=== PATIENT | female | born 1965 | race Caucasian/White ===

== ENCOUNTER 2024-06-13 09:55 | Inpatient (IN) ==
--- NOTE | 2024-06-06 11:21 | Anesthesiology Consultation ---
Date of Service June 06, 2024 Assessment & Plan Chart Review Chart Review: Acceptable Risk for Surgery and Patient NOT seen in Pre Admission Testing Consults Requested none History Surgery Operation Date: 06/13/24 12:35 Proposed Procedures p L2-L4 Decompression and Fusion Spinal Cord Monitoring - Judah Montoya DO Height/Weight Height: 5 ft 2 in Weight: 63.503 kg Allergies Allergy/AdvReac Type Severity Reaction Status Date / Time doxycycline Allergy Intermediate hives/rash Verified 06/06/24 08:32 Penicillins Allergy Unknown Unknown Verified 06/06/24 08:32 Medications Home Medications Medication Instructions Recorded Confirmed Last Taken alprazolam 0.5 mg tablet (Xanax) 0.5 mg PO DAILY PRN Anxiety 06/06/24 06/06/24 Unknown cholecalciferol (vitamin D3) 125 5,000 unit PO QAM 06/06/24 06/06/24 Unknown mcg (5,000 unit) tablet (Vitamin D3) omeprazole 40 mg capsule,delayed 40 mg PO QAM 06/06/24 06/06/24 Unknown release sertraline 100 mg tablet (Zoloft) 150 mg PO QAM 06/06/24 06/06/24 Unknown sumatriptan succinate 100 mg 100 mg PO UD PRN Migraine Headache 06/06/24 06/06/24 Unknown tablet (Imitrex) Past Medical History Medical History (Updated 06/06/24 @ 08:41 by Mylene Cabrera RN) PMR (polymyalgia rheumatica) Scoliosis Chronic back pain Fatty liver History of gastric ulcer GERD (gastroesophageal reflux disease) Monse thyroiditis per pt no meds currently Anxiety Depression 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 prolapse 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 Past Family History Family History (Updated 06/06/24 @ 08:42 by Mylene Cabrera RN) Other No family history of adverse response to anesthesia Past Surgical History Surgical History (Updated 06/06/24 @ 08:42 by Mylene Cabrera RN) History of lumpectomy of right breast benign tumor removal History of endometrial ablation History of thumb surgery x2--1 on each thumb History of repair of left rotator cuff History of repair of right rotator cuff History of surgical fusion joint SI joint left side History of liver biopsy fatty liver History of colonoscopy History of esophagogastroduodenoscopy (EGD) History of thyroid surgery per pt due to hasimoto Social History Smoking Status: Former smoker Do You Dip or Chew Tobacco: No Smoking End Date: 2013 Hx Alcohol Use: No Hx Substance Use: No substance use type: does not use
[2024-06-13] MEDS ORDERED: GLYCOPYRROLATE 0.2 MG/ML VIAL ONE (10:12)
[2024-06-13] MEDS ORDERED: ONDANSETRON INJ 2 MG/ML 2 ML VIAL ONE (10:12)
[2024-06-13] MEDS ORDERED: fentaNYL citrate PF 100 MCG/2 ML VIAL ONE (10:12)
[2024-06-13] MEDS ORDERED: PROPOFOL IV EMULSION 10 MG/ML 20 ML VIAL IV ONE (10:12)
[2024-06-13] MEDS ORDERED: ROCURONIUM BROMIDE 10 MG/ML 5 ML VIAL IV ONE (10:12)
[2024-06-13] MEDS ORDERED: MIDAZOLAM HCL 1 MG/ML 2ML VIAL ONE (10:12)
[2024-06-13] MEDS ORDERED: DEXAMETHASONE SOD INJ 4 MG/ML VIAL ONE (10:12)
[2024-06-13] MEDS ORDERED: LIDOCAINE 2% 2 ML VIAL/AMP(20MG/ML) INFIL ONE (10:12)
[2024-06-13] MEDS ORDERED: SUGAMMADEX SODIUM 200 MG/2 ML VIAL IV ONE (10:15)
[2024-06-13] MEDS ORDERED: ATROPINE SULFATE 0.1 MG/ML 10ML SYR IV PRN (10:46)
[2024-06-13] MEDS ORDERED: HYDROmorphone INJ 1 MG/ML SYRINGE IV PRN ×2 (10:46→17:29)
[2024-06-13] MEDS ORDERED: ePHEDrine sulfate 50 MG/ML AMP IV PRN (10:46)
[2024-06-13] MEDS ORDERED: ONDANSETRON INJ 2 MG/ML 2 ML VIAL IV PRN ×2 (10:46→17:29)
--- NOTE | 2024-06-13 10:49 | Anesthesiology Consultation ---
Date of Service June 13, 2024 Assessment & Plan Chart Review Chart Review: Acceptable Risk for Surgery Consults Requested none ASA ASA2 Proposed Anesthesia Anesthesia Type: General History Surgery Operation Date: 06/13/24 12:35 Proposed Procedures p L2-L4 Decompression and Fusion, Spinal Cord Monitoring - Judah Montoya DO Height/Weight Height: 5 ft 2 in Weight: 63.2 kg Allergies Allergy/AdvReac Type Severity Reaction Status Date / Time doxycycline Allergy Intermediate hives/rash Verified 06/13/24 10:40 Penicillins Allergy Unknown Unknown Verified 06/13/24 10:40 Medications Home Medications Medication Instructions Recorded Confirmed Last Taken alprazolam 0.5 mg tablet (Xanax) 0.5 mg PO DAILY PRN Anxiety 06/06/24 06/13/24 Unknown cholecalciferol (vitamin D3) 125 5,000 unit PO QAM 06/06/24 06/13/24 06/11/24 07:00 mcg (5,000 unit) tablet (Vitamin D3) omeprazole 40 mg capsule,delayed 40 mg PO QAM 06/06/24 06/13/24 06/11/24 07:00 release sertraline 100 mg tablet (Zoloft) 150 mg PO QAM 06/06/24 06/13/24 06/12/24 07:00 sumatriptan succinate 100 mg 100 mg PO UD PRN Migraine Headache 06/06/24 06/13/24 Unknown tablet (Imitrex) NPO Last Intake of Solids Comment: NPO past MN Past Medical History Medical History PMR (polymyalgia rheumatica) Scoliosis Chronic back pain Fatty liver History of gastric ulcer GERD (gastroesophageal reflux disease) Monse thyroiditis per pt no meds currently Anxiety Depression 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 prolapse 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 Exercise / Class Metabolic Activity II 4-5 Yardwork/Stairs/Walk up hill Past Family History Family History Other No family history of adverse response to anesthesia Past Surgical History Surgical History History of lumpectomy of right breast benign tumor removal History of endometrial ablation History of thumb surgery x2--1 on each thumb History of repair of left rotator cuff History of repair of right rotator cuff History of surgical fusion joint SI joint left side History of liver biopsy fatty liver History of colonoscopy History of esophagogastroduodenoscopy (EGD) History of thyroid surgery per pt due to hasimoto Past Anesthesia History No Hx of Anesthesia Complications History of PONV No Hx of PONV Social History Smoking Status: Never smoker Do You Dip or Chew Tobacco: No Smoking End Date: 2013 Hx Alcohol Use: No Hx Substance Use: No substance use type: does not use Review of Systems ROS Unobtainable: All systems reviewed & are unremarkable except as noted in Subjective Respiratory: no problem reported Cardiovascular: no problem reported Pain in Left leg 2nd to back issues Physical Exam Constitutional no acute distress ENMT Mouth: no dentition abnormality Thyromental Distance: > or= 3.5 Finger Breadths Mallampati Class: I Neck normal visual inspection Respiratory normal respiratory effort, lungs clear to auscultation normal respiratory effort Auscultation: lungs clear to auscultation bilaterally Cardiovascular RRR, no murmur, no edema Rate/Rhythm: regular rate and regular rhythm Testing Electrocardiogram Normal sinus rhythm Normal ECG When compared with ECG of 26-Jun-2022 11:00, No significant change was found
[2024-06-13] MEDS: GABAPENTIN 600 MG DOSE PO SCH (11:06)
[2024-06-13] MEDS: LR 60ML/HR IV SCH (11:06)
[2024-06-13] MEDS: ACETAMINOPHEN 500 MG TAB PO SCH (11:06)
[2024-06-13] MEDS: CeleBREX 200 MG CAP PO SCH (11:07)
[2024-06-13] MEDS: LACTATED RINGER'S 1,000 ML IV SCH (11:49)
[2024-06-13] MEDS: VANCOMYCIN HCL 1,000 MG/270 ML BAG IV SCH (11:51)
--- NOTE | 2024-06-13 13:13 | History & Physical Bridge Note ---
Date of Service June 13, 2024 History & Physical Bridge Note I have examined the patient, reviewed the History & Physical and in the interval since the performance of the History & Physical I have noted the following changes of clinical significance: no changes noted
--- NOTE | 2024-06-13 13:14 | History & Physical Report ---
Date of Service June 13, 2024 Assessment & Plan (1) Lumbosacral spondylosis with radiculopathy: Plan: L2-L4 decompression and fusion History of Present Illness Chief Complaint: Back and leg pain Primary Care Provider: Michelle Weathers PA-C This is a 59-year-old female who presents with chronic system back and leg pain after failing course of nonoperative care is here for surgical invention. Allergies Allergy/AdvReac Type Severity Reaction Status Date / Time doxycycline Allergy Intermediate hives/rash Verified 06/13/24 10:40 Penicillins Allergy Unknown Unknown Verified 06/13/24 10:40 Home Medications Medication Instructions Recorded Confirmed Type alprazolam 0.5 mg tablet (Xanax) 0.5 mg PO DAILY PRN Anxiety 06/06/24 06/13/24 History cholecalciferol (vitamin D3) 125 5,000 unit PO QAM 06/06/24 06/13/24 History mcg (5,000 unit) tablet (Vitamin D3) omeprazole 40 mg capsule,delayed 40 mg PO QAM 06/06/24 06/13/24 History release sertraline 100 mg tablet (Zoloft) 150 mg PO QAM 06/06/24 06/13/24 History sumatriptan succinate 100 mg 100 mg PO UD PRN Migraine Headache 06/06/24 06/13/24 History tablet (Imitrex) Past Med/Surg History Problem List (Updated 06/13/24 @ 13:14 by Judah Montoya DO) Lumbosacral spondylosis with radiculopathy Medical History PMR (polymyalgia rheumatica) Scoliosis Chronic back pain Fatty liver History of gastric ulcer GERD (gastroesophageal reflux disease) Monse thyroiditis per pt no meds currently Anxiety Depression 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 prolapse 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 Surgical History History of lumpectomy of right breast benign tumor removal History of endometrial ablation History of thumb surgery x2--1 on each thumb History of repair of left rotator cuff History of repair of right rotator cuff History of surgical fusion joint SI joint left side History of liver biopsy fatty liver History of colonoscopy History of esophagogastroduodenoscopy (EGD) History of thyroid surgery per pt due to hasimoto Family History Other No family history of adverse response to anesthesia Social History Smoking Status: Never smoker Smoking End Date: 2013; Second Hand Exposure: No; Do You Dip or Chew Tobacco: No; Tobacco Cessation Education Requested by Patient: No Hx Alcohol Use: No Hx Substance Use: No Preferred Language: Afghan Communication Ability: Effective Baggage Agent Supervisor Required: No Beliefs That Will Affect Care: None Current Living Situation: Alone Other Information That Helps Us Care for You: No Feels Safe at Home: Yes Safety Concerns: Feels Safe At This Time Assistive Devices: Glasses Physical Exam Physical Exam: Patient is alert and oriented heart regular rhythm Lungs clear Results & Data Results & Data Vital Signs (Past 12 Hours) Vital Signs Temp Pulse Resp BP Pulse Ox O2 Del Method 06/13/24 10:47 37.2 C 77 20 129/72 95 Room Air
[2024-06-13] MEDS: BUPIVACAINE/EPINEPHRINE 0.25% 1:200,000 30 ML VIAL ONE (14:32)
--- NOTE | 2024-06-13 15:44 | Operative Report ---
Post Operative Report Pre & Post Diagnosis Operation Date: 06/13/24 12:35 Pre-Op Diagnosis: Lumbosacral Spondylosis with Radiculopathy Post-Op Diagnosis: Lumbosacral Spondylosis with Radiculopathy I identified the patient and participated in the time-out.: Yes Procedure Operation Date: 06/13/24 12:35 Actual Procedures #1 lumbar decompression with bilateral medial facetectomies and foraminotomies L2-L3 L3-L4. #2 posterior spinal fusion L2-L3 L3 L4-5 #3 placement posterior instrumentation L2-L4. #4 interbody fusion L2-L3 L3-L4. #5 placement Spira 9 x 22 mm at L2-L3 and 10 x 22 mm at L3-L4. #6 placement locally harvested morselized autograft posterior gutters. #7 placement of infuse collagen sponge combined with Koros in the posterior lateral gutters and os design in the interbody space. #8 application of versa wrap of the exposed dura. Surgeon Judah Montoya, Environmental Health And Safety Manager Brendon Roldan Estimated Blood Loss 150 Findings Consistent with Post-Op Diagnosis Specimens None Indications This is a 59-year-old female presents publish diagnosis of failed course of nonoperative care is here for surgical invention. Description of Procedure Patient was met with identified informed consent obtained. Patient was then taken to the operative suite underwent intubation placed in a prone position the Dave table atop the Manuelito frame. All bony prominences well-padded eyes inspected to ensure no external pressure placed upon them. This point the lumbar spine was prepped and draped no sterile fashion. Sharp dissection with the assistance of Bovie cautery performed down to and exposing the lamina transverse processes of L2-L3-L4 bilaterally. From caudal to cephalad fashion complete laminectomy of L3 and L2 was performed including bilateral medial facetectomies and foraminotomies addressing severe spinal stenosis. Pedicle screws then placed in L2-L3-L4 bilaterally with assistance of fluoroscopy. By way of transforaminal approach on the left complete discectomy of L3-L4 was performed endplates corrected to subcortical bleeding bone and a 10 x 26 mm Spira cage filled with os design bone graft tapped in position. Then proceeded to L2-L3. Again by way of transforaminal approach on the left complete discectomy performed endplates corrected to subcortical and bone and a 9 x 22 mm Spira cage filled with os design bone graft tapped in position. The rods were then placed locked in final position bilaterally. The transverse processes of L2-L3-L4 burred to subcortical bleeding bone. Infuse collagen sponge combined with Koros and local autograft placed in the posterior gutters. 15 round BARTOLO drain inserted. Versa wrap placed over exposed dura. The incision was then closed with 1 Vicryl the fascia 2-0 Vicryl subcutaneously and 4 Monocryl for final skin closure. Steri-Strips sterile dressing placed. Patient waken taken to PACU stable condition. Please note spinal cord monitoring was utilized at the procedure no changes noted. Brendon Jackson was present throughout the entire procedure involved the patient positioning complex portion of the surgery and final skin closure. I attest to the content of the Intraoperative Record and any orders documented therein. Any exceptions are noted below.
--- NOTE | 2024-06-13 15:48 | Fluoroscopy Report ---
FL lumbar spine 2-3V CLINICAL HISTORY: L2-L4 DECOMPRESSION AND FUSION COMPARISON STUDY: MRI lumbar spine 02/26/2024 FLUOROSCOPY TIME: 26.5 seconds FLUOROSCOPY IMAGES: 2 EXPOSURE DOSE: 16.45 mGy FINDINGS: Posterior interbody marjorie and screw fusion with discectomy noted at what is labeled the L2-L4 levels. There is an enteric tube present. No unexpected opaque foreign bodies. Images were submitted following completion of the surgery. IMPRESSION: Fluoroscopic assistance as above. ACT 112: Negative or not required by law. Electronically signed by: Tenzin Gomez M.D. 06/13/2024 3:47 PM
[2024-06-13] MEDS: fentaNYL citrate PF 100 MCG/2 ML VIAL IV PRN (16:09)
--- OUTSIDE RECORDS SUMMARY | 2024-06-13 17:25 | External Medical Summary | Summary of Care ---
Author Name Unknown Organization [facility] Address [address] [place] [address] Phone [phone] Care Team Providers Care Oil Well Logging Engineer Name Role Phone Michelle Weathers PA-C Primary Care Provider Encounter Details Date Type Department Care Team ([facility] Contact Info) Description 06/09/2024 Orders Only Family [address] [phone] Michelle Weathers PA-C [address] [place] [address] Allergies Active Allergy Reactions Criticality Noted Date Comments Doxycycline 07/22/2003 Other Reaction(s): Unknown Penicillins 03/08/2001 Venlafaxine Hydrochloride 03/10/2021 documented as of this encounter (statuses as of 06/09/2024) Medications clobetasol (TEMOVATE) 0.05 % gelIndications:L ichen sclerosus apply to vaginal area every day with flare ups. not longer than 2 weeks. 1 Tube 3 9 Active SUMAtriptan Succinate 100 MG Oral TabletIndication s:Intractable migraine with aura without status migrainosus take one tablet by mouth at headache onset, may repeat one tablet in 2 hours if needed 9 Tab 5 1 Active Fluticasone Propionate 50 MCG/ACT Nasal Suspension (Flonase)Indicat ions:Acute sinusitis, recurrence not specified, unspecified location Administer 2 Sprays into each nostril in the morning. 1 Each 5 3 Active Omeprazole 40 MG Oral Capsule Delayed Release (PriLOSEC)Indica tions:Epigastric pain Take 1 Capsule by mouth in the morning. 1 hour before the first meal of the day. 90 Capsule 3 3 Active Sertraline HCl 50 MG Oral Tablet (Zoloft)Indicati ons:Mood disorder (HCC),Severe episode of recurrent major depressive disorder, without psychotic features (HCC),ESTEVAN (generalized anxiety disorder) TAKE 1 TABLET BY MOUTH IN THE MORNING ALONG WITH 100MG TABLET 90 Tablet 2 4 Active Sertraline HCl 100 MG Oral Tablet (Zoloft) TAKE 1 TABLET BY MOUTH DAILY 90 Tablet 1 4 Active predniSONE 5 MG Oral Tablet (Deltasone) Take 1 Tablet by mouth in the morning. 14 Tablet 4 Active documented as of this encounter (statuses as of 06/09/2024) Active Problems Problem Noted Date Diagnosed Date MVP (mitral valve prolapse) 06/06/2024 Anxiety 04/25/2023 Lichen sclerosus of female genitalia 03/07/2023 History of Monse thyroiditis 03/07/2023 Gastroesophageal reflux disease 03/07/2023 Severe episode of recurrent major depressive disorder, without psychotic features 03/16/2021 Sleep disorder 03/16/2021 Chronic midline low back pain 02/16/2021 Chronic neck pain 02/16/2021 Mood disorder 02/16/2021 Acquired spondylolisthesis 12/19/2019 Cervical radiculopathy, chronic 12/19/2019 Palpitations 12/08/2019 Preoperative cardiovascular examination 12/08/19 20 History of tobacco abuse 08/04/2019 ESTEVAN (generalized anxiety disorder) 06/06/2018 FUNCTIONAL VAGINISMUS 08/23/2006 Rosacea 07/19/2005 Vertigo 07/04/2004 CLASSICAL MIGRAINE WITH INTRACTABLE MIGRAINE, SO STATED 07/04/2002 documented as of this encounter (statuses as of 06/09/2024) Resolved Problems Problem Noted Date Diagnosed Date Resolved Date Muscle spasm 02/16/2021 03/07/2023 Gastroesophageal reflux dise ase without esophagitis 02/16/2021 03/07/2023 Recurrent major depressive disorder 04/29/2019 02/16/2021 MEDICATION USE AGREEMENT 06/06/2018 Lichen sclerosus et atrophicus 08/11/2015 03/07/2023 Pure hypercholesterolemia 07/03/2013 ADVANCE DIRECTIVE INFORMATION 12/14/2006 02/16/2021 Overview (12/14/2006): No, Advance Directive brochure given to patient. CERVICAL DISC DISPLACMNT 09/20/2005 Seborrheic dermatitis 07/19/20052019 Overview (03/26/2017): ICD-10 update of inactive term Vascular Spider Left facial chin 07/19/2005 02/16/2021 History of hypothyroidism Acute peptic ulcer, unspecif ied site, without mention of hemorrhage, perforation, or obstruction 08/04/2019 documented as of this encounter (statuses as of 06/09/2024) Immunizations Name Administration Dates Next Due PPD 09/09/2007 Pneumococcal Polysaccharide PPV23 (Pneumovax) 12/08/2013(Deferred: Patient Refused) TDAP (age 10 and older)(Boostrix) 10/08/2014 TDAP, Age 7 and older, IM (Adacel) 12/08/2013(De ferred: Patient Refused) documented as of this encounter Social History Tobacco Use Types Packs/Day Years Used Date Smoking Tobacco: Former Cigarettes 1 20 0 07/04/1993 - 07/04/2013 Smokeless Tobacco: Never Alcohol Use Standard Drinks/Week Comments Not Currently 0 (1 standard drink = 0.6 oz pur e alcohol) occ PHQ-2 Answer Date Recorded PHQ Adult Total Score 16 03/07/2023 Hunger Vital Sign Answer Date Recorded Within the past 12 months, y ou worried that your food would run out before you got the money to buy more. Never true 06/06/20 24 Within the past 12 months, t he food you bought just didn't last and you didn't have money to get more. Never true 06/06/2024 Childcare Answer Date Recorded Do you feel overwhelmed with taking care of a child, family member or friend? No 06/06/2024 Does your family need help f inding childcare? (Household - for ages 0-17 years) Not on file 06/06/2024 Clothing Answer Date Recorded Have you been unable to get clothing when it was really needed? No 06/06/2024 Is your family able to get c lothes or diapers when needed? (Household - for ages 0-17 years) Not on file 06/06/2024 Personal Safety Answer Date Recorded Do you feel unsafe or have concerns for your saf ety? No 06/06/2024 Do you have concerns for you r family's safety? (Household - for ages 0-17 years) Not on file 06/06/2024 Utilities Answer Date Recorded Do you have trouble paying y our heating, water, or electric bill? No 06/06/2024 Is your family able to pay t he heat, water, or electric bill? (Household - for ages 0-17 years) Not on file 06/06/2024 Does your family have access to good internet? (Household - for ages 0-17 years) Not on file 06/06/2024 Employment Status Answer Date Recorded Are you unemployed or without regular income? No 06/06/2024 Does the household have a [facility] source of income? (Household - for ages 0-17 years) Not on file 06/06/2024 Social Connections Answer Date Recorded How often do you feel lonely or isolated from those around you? Sometimes 06/06/2024 Financial Resource Strain Answer Date R ecorded Do you have any trouble payi ng for your medications, or do you think you might in the future? No 06/06/2024 Does your family have troubl e paying for medicine? (Household - for ages 0-17 years) Not on file 06/06/2024 Transportation Needs Answer Date Record ed Do you have trouble getting a ride to medical visits or work? (Adult - for ages 18 years and over) Not on file 06/06/2024 Does your family have a hard time getting a ride to doctors visits? (Household - for ages 0-17 years) Not on file 06/06/2024 Has lack of transportation k ept you from medical appointments, meetings, work, or from getting things needed for daily living? Check all that apply. No 06/06/2024 Do you (or your family) have trouble finding or paying for a ride (transportation)? (Household - for ages 0-17 years) Not on file 06/06/2024 Housing Stability Answer Date Recorded Do you currently live in a s helter or have no steady place to sleep at night? No 06/06/2024 Do you think you are at risk of becoming homeless? (Adult - for ages 18 years and over) Not on file 06/06/2024 Does your family worry about paying for your home or becoming homeless? (Household - for ages 0-17 years) Not on file 1 08/07/2023 Are you homeless or worried that you might be in the future? No 06/06/2024 Are you (or your family) robbie eless or worried that you might be in the future? (Household - for ages 0-17 years) Not on file Food Insecurity Answer Date Recorded Do you need food for this week? No 06/06/2024 Are you able to get enough f ood for your family? (Household - for ages 0-17 years) Not on file 06/06/2024 Does your family need food t his week? (Household - for ages 0-17 years) Not on file 06/06/2024 Do you always have enough fo od for your family? (Household - for ages 0-17 years) Not on file 06/06/2024 Comments No Sex and Gender Information Value Date Recorded Sex Assigned at Female 09/06/2022 9:08 AM EDT Legal Sex Female 6:05 AM EST Gender Identity Female 09/06/2022 9:08 AM EDT Sexual Orientation Straight 09/06/2022 9: 08 AM EDT documented as of this encounter Plan of Treatment Upcoming Encounters Date Type Department Care Team (Late st Contact Info) Description 11/12/2024 3:00 PM EDT Office Visit Rheumatology [facility] [address] [place] [address] Shaniqua Diaz CRNP [address] [facility] [place] [address] Scheduled Procedures Name Priority Associated Diagnoses Date/Ti me ESOPHAGOGASTRODUODENOSCOPY ( EGD), FLEXIBLE, TRANSORAL, DIAGNOSTIC Recall Duodenal stenosis Health Maintenance Due Date Last Done Comments Fecal Occult Blood Test 2009 Sigmoidoscopy 2009 Zoster Vaccines (1 of 2) 2014 Cologuard 08/15/2021 08/15/2018 COVID-19 Vaccine (2 - season) 2024 08/24/2021 Influenza Vaccine (FLU shot) (#1) 2024 06/07/2023 Depression Monitoring 03/07/2024 03/07/2023 Mammogram 03/16/2024 03/16/2023, 02/24, 03/15/2021, Additional history exists DTap/Tdap Vaccines (2 - Td or Tdap) 10/08/2024 10/08/2014 Diabetes Screening 05/23/2026 06/02/2024, 1 07/23/2022, 03/07/2023, Additional history exists Pap Smear 05/30/2026 05/30/2023, 11/0 10/2018, 08/11/2015, Additional history exists Lipid Panel 03/07/2028 03/07/2023, 01/24, 08/11/2015, Additional history exists Cervical Cancer Screening 05/30/2028 HPV/Co-Test 05/30/2028 05/30/2023 Colonoscopy 04/25/2030 04/25/2023 Colorectal Cancer Screening 04/25/2030 Lung Cancer Screening Completed 07/06/2022 HPV (Gardasil) Vaccine Aged Out No lo nger eligible based on patient's age to complete this topic Hepatitis B Vaccine Aged Out No longe r eligible based on patient's age to complete this topic MENINGOCOCCAL (MENACTRA/MENVEO) Aged Out No longer eligible based on patient's age to complete this topic Pneumococcal Vaccine: Pediatrics (0 to 5 Years) and At-Risk Patients (6 to 64 Years) Aged Out No longer eligible based on patient's age to complete this topic documented as of this encounter Medical Devices Implanted Type Area Rabbit Breeder Device Identifier Shelf Expiration Date Model / Serial / Lot [place] Mini Quick 2/0 [id number] - [id number] Implanted:Qty: 1 on 06/09/2011 at [facility] Left: Hand JNJ : DEPUY MITEK SURG PROD 02/22/2014 [id number] / / [id number] [place] Mini Quick 2/0 [id number] - [id number] Implanted:Qty: 1 on 06/09/2011 at [facility] Left: Hand JNJ : DEPUY MITEK SURG PROD 02/22/2014 [id number] / / [id number] documented as of this encounter Procedures Procedure Name Priority Date/Time Associated Diagnosis Comments XR CHEST 2 VIEWS Routine 06/02/2024 documented in this encounter Results * XR CHEST 2 VIEWS (06/02/2024) Anatomical Region Laterality Modality Chest Other 06/02/2024 us Judah Montoya DO RADIOLOGY (RAD GENE RAL) Final Result documented in this encounter Advance Directives * Full Code (Latest Code Status on File) Date Activated Date Inactivated Comments 06/09/2011 9:05 AM 06/09/2011 5:49 PM This order reflects the patients wishes and were consensually agreed upon. Care Teams Oil Well Logging Engineer Relationship Specialty Start Date End Date Michelle Weathers PA-C [address] [place] [address] [place] [id number] PCP - General Physician Spider Assembler 04/20/18 documented as of this encounter
--- OUTSIDE RECORDS SUMMARY | 2024-06-13 17:25 | External Medical Summary | Summary of Care ---
Author Name Unknown Organization [facility] Address [address] [facility] [place] [address] Phone [phone] Care Team Providers Care Automotive Services Manager Name Role Phone Michelle Weathers PA-C Primary Care Provider Reason for Visit * Reason Comments Preop Pt Assessment Encounter Details Date Type Department Care Team ([facility] Contact Info) Description 06/06/2024 7:20 AM EST Office Visit [address] [phone] Anupama Prater PA-C [address] [place] [phone] Preop examination*; Encounter for screening mammogram for malignant neoplasm of breast; Severe episode of recurrent major depressive disorder, without psychotic features (HCC); MVP (mitral valve prolapse); History of Monse thyroiditis; Gastroesophageal reflux disease, unspecified whether esophagitis present; Preoperative general physical examination Allergies Active Allergy Reactions Criticality Noted Date Comments Doxycycline 07/22/2003 Other Reaction(s): Unknown Penicillins 03/08/2001 Venlafaxine Hydrochloride 03/10/2021 documented as of this encounter (statuses as of 06/12/2024) Medications clobetasol (TEMOVATE) 0.05 % gelIndications: Lichen sclerosus apply to vaginal area every day with flare ups. not longer than 2 weeks. 1 Tube 3 9 Active SUMAtriptan Succinate 100 MG Oral TabletIndicatio ns:Intractable migraine with aura without status migrainosus take one tablet by mouth at headache onset, may repeat one tablet in 2 hours if needed 9 Tab 5 1 Active Fluticasone Propionate 50 MCG/ACT Nasal Suspension (Flonase)Indica tions:Acute sinusitis, recurrence not specified, unspecified location Administer 2 Sprays into each nostril in the morning. 1 Each 5 3 Active Omeprazole 40 MG Oral Capsule Delayed Release (PriLOSEC)Indic ations:Epigastr ic pain Take 1 Capsule by mouth in the morning. 1 hour before the first meal of the day. 90 Capsule 3 3 Active Sertraline HCl 50 MG Oral Tablet (Zoloft)Indicat ions:Mood disorder (HCC),Severe episode of recurrent major depressive [...] in the morning. 14 Tablet 4 Active predniSONE 5 MG Oral Tablet (Deltasone) Take 3.5 Tablets by mouth daily for 21 days, THEN 3 Tablets daily for 21 days, THEN 2.5 Tablets daily for 21 days, THEN 2 Tablets daily for 21 days. 231 Tablet 4 06/12/20 24 Discontin ued(Medic ation List Clean Up) documented as of this encounter (statuses as of 06/12/2024) Active Problems Problem Noted Date Diagnosed Date [...] as of this encounter (statuses as of 06/12/2024) Resolved Problems Problem Noted Date Diagnosed Date [...] as of this encounter (statuses as of 06/12/2024) Immunizations Name Administration Dates Next Due PPD 09/09/2007,12/24/1996 Pneumococcal Polysaccharide PPV23 (Pneumovax) 12/08/2013(Deferred: Patient Refused) [...] No 06/06/2024 Does the household have a re gular source of income? (Household - for ages [...] AM EDT documented as of this encounter Last Filed Vital Signs Vital Sign Reading Time Taken Comments Blood Pressure 104/68 06/06/2024 7:06 AM EST Pulse 77 06/06/2024 7:06 AM EST Temperature 36.8 C (98.3 F) 06/06/2024 7:06 AM ES T Respiratory Rate 16 06/06/2024 7:06 AM EST Oxygen Saturation 99% 06/06/2024 7:06 AM EST Inhaled Oxygen Concentration - - Weight 63.6 kg (140 lb 3.2 oz) 06/06/2024 7:06 A M EST Height - - Body Mass Index 25.64 07/25/2023 1:09 PM EST documented in this encounter Patient Instructions * Patient Instructions* Felipe Jimenez LPN - 06/06/2024 7:08 AM EST Images from the original note were not included. Mammography Mammography is an X-ray exam of your breast tissue. The image it makes is called a mammogram. A mammogram can help find problems with your breasts, such as cysts or cancer. Mammography is the best breast cancer screening tool available. Have screening mammograms and professional breast exams as often as your healthcare provider recommends. Also, be sure you know how your breasts normally look and feel. This makes it easier to noticeany changes. Report changes to your healthcare provider as soon as possible. How do I get ready for a mammogram? Schedule the test for 1 week after your period. Your breasts are less sore then. Make sure your clinic gets images of your last mammogram if it was done somewhere else. This lets the provider compare the 2 sets of images for any changes. On the morning of your test, dont use deodorant, powder, or perfume. Wear a top that you can take off easily. What happens during a mammogram? You will need to undress from the waist up. The technologist will position your breast to get the best test results. Each of your breasts will be compressed one at a time. This helps get the most complete X-ray image. Your breasts will be repositioned to get at least 2 separate views of each breast. What happens after a mammogram? More X-rays are sometimes needed. If not done at the time of your initial mammogram, youll be called to schedule them. You should receive your test results in writing. Ask about this on the day of your appointment. Have mammograms as often as your healthcare provider recommends. Let the technologist know if: Youre or think you may be You have breast implants You have any scars or moles on or near your breasts Youve had a breast biopsy or surgery Youre Date Last Reviewed: 11/23/201619996524-9864 [employer]. [address] [place] [address]. All rights reserved. This information is not intended as a substitute for professional medical care. Always follow your healthcare professional's instructions documented in this encounter Nursing Notes * Felipe Jimenez LPN - 06/06/2024 7:07 AM EST The patient has been properly identified by confirmation of name and date of . Chief Complaint Patient presents with Preop Pt Assessment UOC . Lumbar radiculopathy. Lab work and EKG completed. documented in this encounter Plan of Treatment Upcoming Encounters Date Type Department Care Team (Late st Contact Info) Description 11/12/2024 3:00 PM EDT Office Visit Rheumatology [place] [phone] [facility] [place] [address] Shaniqua Diaz CRNP [facility] [place] [address] Scheduled Orders Name Type Priority Associated Diagnoses Orde r Schedule MAMMOGRAM SCREENING JOHNATHAN BILATERAL Medical Imaging Routine Encounter for screening mammogram for malignant neoplasm of breast Expected: 06/06/2024, Expires: 07/07/2025 Scheduled Procedures Name Priority Associated Diagnoses Date/Ti [...] (2 - Td or Tdap) 10/08/2024 10/08/2014 Pap Smear 05/30/2026 05/30/2023, 11/10/2018, 08/11/2015, Additional history exists Diabetes Screening 06/02/2027 06/02/2024, 1 07/23/2022, 03/07/2023, Additional history exists Lipid Panel 03/07/2028 03/07/2023, [...] this encounter Medical Devices Implanted Type Area Shingle Bolt Cutter Device Identifier Shelf Expiration Date Model / Serial / Lot [place] Mini Quick 2/0 [id number] - [id number] Implanted:Qty: 1 on 06/09/2011 at [facility] Left: Hand JNJ : DEPUY MITEK SURG PROD 02/22/2014 [id number] / / [id number] [place] Mini Quick 2/0 [id number] - [id number] Implanted:Qty: 1 on 06/09/2011 at OR [facility] Left: Hand JNJ : DEPUY MITEK SURG PROD 02/22/[id number] / / [id number] documented as of this encounter Visit Diagnoses Diagnosis Preop examination- Primary Preoperative examination, unspecified Encounter for screening mammogram for malignant neoplasm of breast Other screening mammogram Severe episode of recurrent major depressive disorder, without psychotic features (HCC) MVP (mitral valve prolapse) 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 disorders History of Monse thyroiditis Personal history of other endocrine, metabolic, and immunity disorders Gastroesophageal reflux disease, unspecified whether esophagitis present Preoperative general physical examination Other specified pre-operative examination documented in this encounter Advance Directives * Full Code (Latest Code Status on File) Date Activated Date Inactivated Comments 06/09/2011 9:05 AM 06/09/2011 5:49 PM This order reflects the patients wishes and were consensually agreed upon. Care Teams Automotive Services Manager Relationship Specialty Start Date End Date Michelle Weathers PA-C [address] [place] [phone] PCP - General Physician Senior Support Analyst 04/20/18 documented as of this encounter
--- OUTSIDE RECORDS SUMMARY | 2024-06-13 17:25 | External Medical Summary | Summary of Care ---
Author Name Unknown Organization [facility] Address [address] [facility] [place] [address] Phone [phone] Care Team Providers Care Upsetter Name Role Phone Michelle Weathers PA-C Primary Care Provider Reason for Visit * Reason Onset Date Comments FYI 06/11/2024 Encounter Details Date Type Department Care Team (Late st Contact Info) Description 06/11/2024 Telephone Access Center, [facility] [address] [facility] *DO NOT REMOVE THIS DEPARTMENT* [place] [phone] Services, Scheduling [address] [place] [address] FY Allergies Active Allergy Reactions Criticality Noted Date [...] AM EDT documented as of this encounter Miscellaneous Notes * Telephone Encounter - Brendon Hernández MD - 06/12/2024 10:39 AM EST Note has been cosigned * Telephone Encounter - Anupama Prater PA-C - 06/12/2024 9:27 AM EST Labs received and note completed. Sent to supervising for co signature. Anupama Prater PA-C 06/12/2024 9:27 AM * Telephone Encounter - Jeannine Sexton OSA - 06/12/2024 9:12 AM EST Called will send in next 5 min to director casetitle search manager will watch for them * Telephone Encounter - Anupama Prater PA-C - 06/12/2024 9:01 AM EST I am still waiting on pre op labs. Could you assist us in getting those BRENDON? Anupama Prater PA-C 06/12/2024 9:01 AM * Telephone Encounter - Abigail Alvarez LPN - 06/12/2024 8:15 AM EST Diamante calling from Pre-Anesthesia. Patient is having surgery tomorrow, 06/13. Her surgery will need cancelled if the pre-op clearance office visit notes aren't completed by 3:30 pm today. Diamante will check EPIC throughout the day for completion. * Telephone Encounter - Therese Mohan OSA - 06/11/2024 8:06 AM EST Carroll Bobby calling to advise that she was seen on 06/06/24 by Chava Prater for preop clearance, however the note is still in draft. Pt scheduled for surgery on 06/13/24 documented in this encounter Plan of Treatment Upcoming Encounters Date Type Department Care Team (Late st Contact Info) Description 11/12/2024 3:00 PM EDT Office Visit Rheumatology [facility] [place] [address] [facility] [place] [address] Shaniqua Diaz CRNP [address] [employer] [facility] [employer] [place] [address] Scheduled Procedures Name Priority Associated Diagnoses Date/Ti [...] Tdap) 10/08/2024 10/08/2014 Pap Smear 05/30/2026 05/30/2023, 11/0 10/2018, 08/11/2015, Additional history exists Diabetes Screening 06/02/2027 [...] this encounter Medical Devices Implanted Type Area Dry Starch Supervisor Device Identifier Shelf Expiration Date Model / Serial / Lot [place] Mini Quick 2/0 [id number] - [id number] Implanted:Qty: 1 on 06/09/2011 at [facility] Left: Hand JNJ : DEPUY MITEK SURG PROD 02/22/2014 [id number] / / [id number] [place] Mini Quick 2/0 [id number] - [id number] Implanted:Qty: 1 on 06/09/2011 at [facility] Left: Hand JNJ : DEPUY MITEK SURG PROD 02/22/2014 [id number] / / [id number] documented as of this encounter Advance Directives * Full Code (Latest Code Status on File) Date Activated Date Inactivated Comments 06/09/2011 9:05 AM 06/09/2011 5:49 PM This order reflects the patients wishes and were consensually agreed upon. Care Teams Upsetter Relationship Specialty Start Date End Date Michelle Weathers PA-C [address] [place], [place] [address] [address] PCP - General Physician Contract Administration Specialist 04/20/18 documented as of this encounter
--- OUTSIDE RECORDS SUMMARY | 2024-06-13 17:25 | External Medical Summary | Summary of Care ---
Author Name Unknown Organization [facility] Address [address] [facility] [place] [address] Phone [phone] Care Team Providers Care Outside Plant Cable Engineer Name Role Phone Michelle Weathers PA-C Primary Care Provider Encounter Details Date Type Department Care Team ([facility] Contact Info) Description 06/09/2024 Orders Only Family [address] [phone] Michelle Weathers PA-C [address] [place] [address] Allergies Active Allergy Reactions Criticality Noted Date [...] No 06/06/2024 Does the household have a [facility] source of income? (Household - for [...] 11/12/2024 3:00 PM EDT Office Visit Rheumatology [facility] [address] [place] [address] Shaniqua Diaz CRNP [address] [facility] [place] [address] Scheduled Procedures Name Priority Associated Diagnoses Date/Ti [...] Tdap) 10/08/2024 10/08/2014 Pap Smear 05/30/2026 05/30/2023, 10/2018, 08/11/2015, Additional history exists Diabetes Screening [...] this encounter Medical Devices Implanted Type Area Software Quality Manager Device Identifier Shelf Expiration Date Model / Serial / Lot [place] Mini Quick 2/0 [id number] - [id number] Implanted:Qty: 1 on 06/09/2011 at [facility] Left: Hand JNJ : DEPUY MITEK SURG PROD 02/22/2014 [id number] / / [id number] [place] Mini Quick 2/0 [id number] - [id number] Implanted:Qty: 1 on 06/09/2011 at OR [facility] Left: Hand JNJ : CLYDE MITEK SURG PROD 02/22/2014 [id number] / / [id number] documented as of this encounter Procedures Procedure Name Priority Date/Time Associated Diagnosis Comments CHEMISTRY-OUTSIDE Routine 06/02/2024 documented in this encounter Results * (ABNORMAL) CHEMISTRY-OUTSIDE (06/02/2024) Not all results display below - see scan for full detail OUTSIDE LAB (SEE SCANNED REPORT) Comment:SEE SCAN - BMP,CBCD, UA, TYPE AND SCREEN CREATININE 0.63 0.6 - 1.2 MG/DL OUTSIDE LAB (SEE SCANNED REPORT) EGFR 101.49 ML/MIN OUTSIDE LA B (SEE SCANNED REPORT) POTASSIUM 3.4(A) 3.5 - 5.1 MMOL/L OUTSIDE LAB (SEE SCANNED REPORT) GLUCOSE 119(A) 70 - 99 MG/DL OUTSIDE LAB (SEE SCANNED REPORT) HOURS FASTING OUTSID E LAB (SEE SCANNED REPORT) TRIGLYCERIDES-OUT SIDE LAB OUTSIDE LAB (SEE SCANNED REPORT) CHOLESTEROL-OUTSI DE LAB OUTSIDE LAB (SEE SCANNED REPORT) HDL-OUTSIDE LAB OUTS LUCY LAB (SEE SCANNED REPORT) CHOL/HDL RATIO-OUTSIDE LAB OUTSIDE LA B (SEE SCANNED REPORT) LDL (CALCULATED)-OUTS LUCY LAB OUTSIDE LAB (SEE SCANNED REPORT) LDL (DIRECT MEASURE)-OUTSIDE LAB OUTSIDE LAB (SEE SCANNED REPORT) HEMOGLOBIN, Z1F-XXRYVLY LAB OUTSIDE LAB (SEE SCANNED REPORT) PHOSPHORUS-OUTSID E LAB OUTSIDE LAB (SEE SCANNED REPORT) PTH-OUTSIDE LAB OUTS LUCY LAB (SEE SCANNED REPORT) MICROALBUMIN RATIO-OUTSIDE LAB OUTSIDE LA B (SEE SCANNED REPORT) PROTEIN, UA-OUTSIDE LAB OUTSIDE LAB (SEE SCANNED REPORT) HGB 12.6 12.0 - 16.0 G/DL OUTSIDE LAB (SEE SCANNED REPORT) 06/02/2024 us Judah Montoya DO LABORATORY Fin al Result OUTSIDE LAB (SEE SCANNED REPORT) documented in this encounter Advance Directives * Full Code (Latest Code Status on File) Date Activated Date Inactivated Comments 06/09/2011 9:05 AM 06/09/2011 5:49 PM This order reflects the patients wishes and were consensually agreed upon. Care Teams Outside Plant Cable Engineer Relationship Specialty Start Date End Date Michelle Weathers PA-C [address] [place], [place] [address] [address] PCP - General Physician Design Transferrer 04/20/18 documented as of this encounter
--- OUTSIDE RECORDS SUMMARY | 2024-06-13 17:25 | External Medical Summary | Summary of Care ---
Author Name Unknown Organization [facility] Address [address] [facility] [place] [address] Phone [phone] Care Team Providers Care Poultry Processor Name Role Phone Michelle Weathers PA-C Primary Care Provider Reason for Visit * Reason Comments Preop Pt Assessment Encounter Details Date Type Department Care Team ([facility] Contact Info) Description 06/06/2024 7:20 AM EST Office Visit [address] [phone] Anupama Prater PA-C [address] [place] [phone] Preop examination*; Encounter for screening mammogram [...] biopsy or surgery Youre Date Last Reviewed: 11/23/201619994868-0707 [employer]. [address] [place] [address]. All rights reserved. This information is not [...] 11/12/2024 3:00 PM EDT Office Visit Rheumatology [place] [phone] [facility] [place] [address] Shaniqua Diaz CRNP [facility] [place] [address] Scheduled Orders Name Type Priority Associated Diagnoses [...] this encounter Medical Devices Implanted Type Area Rest Room Attendant Device Identifier Shelf Expiration Date Model / Serial / Lot [place] Mini Quick 2/0 [id number] - [id number] Implanted:Qty: 1 on 06/09/2011 at OR [facility] Left: Hand JNJ : DEPUY MITEK SURG PROD 02/22/2014 [id number] / / [id number] [place] Mini Quick 2/0 [id number] - [id number] Implanted:Qty: 1 on 06/09/2011 at OR [facility] Left: Hand JNJ : DEPUY MITEK SURG PROD 02/22/[id number] / / [id number] documented as of this encounter Visit Diagnoses [...] and were consensually agreed upon. Care Teams Poultry Processor Relationship Specialty Start Date End Date Michelle Weathers PA-C [address] [place] [address] PCP - General Physician Quote Clerk 04/20/18 documented as of this encounter
--- NOTE | 2024-06-13 17:26 | Anesthesiology Progress Note ---
Date of Service June 13, 2024 Anesthesia Post Procedure Vital Signs Vital Signs: Temp Pulse Pulse Pulse Resp BP Pulse Ox 06/13/24 17:20 36.6 C 70 14 117/67 99 06/13/24 17:00 68 15 105/61 98 06/13/24 16:50 75 9 L 115/66 98 06/13/24 16:40 69 9 L 114/75 99 06/13/24 16:30 73 9 L 115/85 100 06/13/24 16:20 64 12 117/56 L 99 06/13/24 16:10 68 12 119/72 94 06/13/24 16:00 69 12 124/75 99 06/13/24 15:54 36.1 C L 66 12 120/70 100 06/13/24 10:47 37.2 C 77 20 129/72 95 O2 Del Method O2 Flow Rate 06/13/24 17:20 Room Air 06/13/24 17:00 Nasal Cannula 2 06/13/24 16:50 Nasal Cannula 2 06/13/24 16:40 Nasal Cannula 2 06/13/24 16:30 Nasal Cannula 2 06/13/24 16:20 Oxymask 5 06/13/24 16:10 Oxymask 5 06/13/24 16:00 Oxymask 5 06/13/24 15:54 Oxymask 5 06/13/24 10:47 Room Air Pain Intensity Left Lower Back: Pain Intensity: 10 Transfer of Care Handoff Completed per policy Notes Mental Status: alert / awake / arousable Patient Amnestic to Procedure: Yes Nausea / Vomiting: adequately controlled Pain: adequately controlled Airway Patency, RR, SpO2: stable & adequate BP & HR: stable & adequate Hydration State: stable & adequate Anesthetic Complications: no major complications apparent and Pt Satisfied with anesthetic care
[2024-06-13] MEDS ORDERED: SOD PHOSPHATE/SOD BIPHOSPHATE ENEMA 132 ML BTL PR PRN (17:29)
[2024-06-13] MEDS ORDERED: LORazepam 2 MG/1 ML VIAL IV PRN (17:29)
[2024-06-13] MEDS ORDERED: HYDROmorphone INJ 0.5 MG/0.5 ML SYR IV PRN (17:29)
[2024-06-13] MEDS ORDERED: bisacodyL 10 MG SUPP PR PRN (17:29)
[2024-06-13] MEDS ORDERED: ONDANSETRON 4 MG OD TAB PO PRN (17:29)
[2024-06-13] MEDS ORDERED: MAGNESIUM HYDROXIDE SUSP 30 ML UDC PO PRN (17:29)
[2024-06-13] MEDS ORDERED: PROMETHAZINE 12.5 MG/50.5 ML BAG IV PRN (17:29)
[2024-06-13] MEDS ORDERED: SUMAtriptan succinate 100 MG TAB PO PRN (17:29)
[2024-06-13] MEDS ORDERED: ALUMINUM/MAGNESIUM SUSP 30 ML UDC PO PRN (17:29)
[2024-06-13] MEDS ORDERED: ACETAMINOPHEN 1,000 MG/100 ML VIAL IV PRN (17:29)
[2024-06-13] MEDS ORDERED: hydrOXYzine HCl 25 MG TAB PO PRN (17:29)
[2024-06-13] MEDS ORDERED: FAMOTIDINE 20 MG TAB PO PRN (17:29)
[2024-06-13] MEDS ORDERED: DO NOT ADMINISTER PNEUMOCOCCAL VACCINE PRN (17:29)
[2024-06-13] MEDS ORDERED: DO NOT ADMINISTER FLU VACCINE PRN (17:29)
[2024-06-13] MEDS ORDERED: METOCLOPRAMIDE HCL INJ 5 MG/ML 2 ML VIAL IV PRN (17:29)
[2024-06-13] MEDS ORDERED: diphenhydrAMINE Capsule 25 MG CAP PO PRN (17:29)
[2024-06-13] MEDS ORDERED: NALOXONE HCL 0.4 MG/1 ML VIAL/CARP IV PRN (17:29)
[2024-06-13] MEDS ORDERED: LORazepam 0.5 MG TAB PO PRN (17:29)
--- NOTE | 2024-06-13 17:56 | Hospitalist Consultation ---
Date of Consultation June 13, 2024 Assessment & Plan (1) Lumbosacral spondylosis with radiculopathy: POD#0 L2-L4 decompression and fusion by Dr. Montoya Activity and wound care orders as per ortho Pain control with bowel regimen PT/OT Monitor H/H for acute blood loss anemia and transfuse blood products PRN EBL 150cc (2) Depression: (3) Anxiety: Chronic, stable Continue INDUSTRIAL RELATIONS SPECIALIST sertraline (4) GERD (gastroesophageal reflux disease): Chronic, stable Continue PPI (5) PMR (polymyalgia rheumatica): Previously on prednisone, currently on hold in the perioperative period - resume at the discretion of spine Ortho Patient follows with [facility] rheumatology DVT PROPHYLAXIS TEDs/SCDs as per spine Ortho Patient seen in collaboration with Dr. Hopkins. Thank you for this consultation. We will follow the patient with you during their hospital stay. You can reach a member of the [facility] Hospitalist Team 15/01 via the [facility] in [place] Text. Supervising Physician Co-Signing Physician Notes Patient seen and examined Had L2-4 decompression surgery today Currently reporting severe pain at surg site General: In painful distress Eyes: PERRL, conjunctivae normal, not pale, anicteric sclerae, EOM intact bilaterally ENMT: External ear and nose normal, oropharynx normal Respiratory: Normal respiratory effort, no respiratory distress, lungs clear to auscultation, no crackles and no wheezes Cardiovascular: RRR Gastrointestinal (Abdomen): Abdomen is not distended, soft, non-tender to palpation, no guarding, no palpable hepatosplenomegaly, normal bowel sounds Musculoskeletal: Clean dressing over surgical site with drain in situ Genitourinary: Grayson in situ Neurologic: Alert and oriented x 3, No focal weakness, sensation grossly intact Discussed with RN to administer pain meds Check CBC /BMP in AM Continue home meds Activity per Primary Surgeon I spent a total of 35 minutes coordinating, documenting and providing care for this patient excluding time spent in performance of separately billed services History of Present Illness Reason for Consultation: Postop medical management Requesting Physician: Dr. Montoya Attending Physician: Judah Montoya, DO History of Present Illness 59-year-old female with PMH migraines, depression, anxiety, Monse thyroiditis, PMR, and other problems listed below who is s/p L2-L4 decompression fusion today by Dr. Montoya. Post operatively the patient is reporting significant pain. Awaiting for pain medication to be given by nurse. Patient denies any numbness, tingling, weakness of the lower extremities. No chest pain or shortness of breath. Denies lightheadedness and dizziness. Reports some discomfort from Grayson catheter but denies abdominal pain and nausea. No lightheadedness or dizziness. Grayson catheter is in place draining clear yellow urine. Allergies Allergy/AdvReac Type Severity Reaction Status Date / Time doxycycline Allergy Intermediate hives/rash Verified 06/13/24 10:40 Penicillins Allergy Unknown Unknown Verified 06/13/24 10:40 Home Medications Medication Instructions Recorded Confirmed Type alprazolam 0.5 mg tablet (Xanax) 0.5 mg PO DAILY PRN Anxiety 06/06/24 06/13/24 History cholecalciferol (vitamin D3) 125 5,000 unit PO QAM 06/06/24 06/13/24 History mcg (5,000 unit) tablet (Vitamin D3) omeprazole 40 mg capsule,delayed 40 mg PO QAM 06/06/24 06/13/24 History release sertraline 100 mg tablet (Zoloft) 150 mg PO QAM 06/06/24 06/13/24 History sumatriptan succinate 100 mg 100 mg PO UD PRN Migraine Headache 06/06/24 06/13/24 History tablet (Imitrex) Patient History Medical History PMR (polymyalgia rheumatica) Scoliosis Chronic back pain Fatty liver History of gastric ulcer GERD (gastroesophageal reflux disease) Monse thyroiditis per pt no meds currently Anxiety Depression 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 prolapse no contracting engineer Surgical History History of lumpectomy of right breast benign tumor removal History of endometrial ablation History of thumb surgery x2--1 on each thumb History of repair of left rotator cuff History of repair of right rotator cuff History of surgical fusion joint SI joint left side History of liver biopsy fatty liver History of colonoscopy History of esophagogastroduodenoscopy (EGD) History of thyroid surgery per pt due to hasimoto Family History Other No family history of adverse response to anesthesia Social History Smoking Status: Never smoker Smoking End Date: 2013; Second Hand Exposure: No; Do You Dip or Chew Tobacco: No; Tobacco Cessation Education Requested by Patient: No Hx Alcohol Use: No Hx Substance Use: No Preferred Language: Welsh Communication Ability: Effective Batch Maker Required: No Beliefs That Will Affect Care: None Current Living Situation: Alone Other Information That Helps Us Care for You: No Feels Safe at Home: Yes Safety Concerns: Feels Safe At This Time Assistive Devices: Glasses Review of Systems Review of Systems: ROS per HPI, all other systems reviewed and negative Physical Exam Physical Exam: Please refer to Dr. Hopkins's addendum for physical exam. Results & Data Results & Data Vital Signs (Past 12 Hours) Vital Signs Temp Pulse Pulse Pulse Resp BP Pulse Ox 06/13/24 17:20 36.6 C 70 14 117/67 99 06/13/24 17:00 68 15 105/61 98 06/13/24 16:50 75 9 L 115/66 98 06/13/24 16:40 69 9 L 114/75 99 06/13/24 16:30 73 9 L 115/85 100 06/13/24 16:20 64 12 117/56 L 99 06/13/24 16:10 68 12 119/72 94 06/13/24 16:00 69 12 124/75 99 06/13/24 15:54 36.1 C L 66 12 120/70 100 06/13/24 10:47 37.2 C 77 20 129/72 95 O2 Del Method O2 Flow Rate 06/13/24 17:20 Room Air 06/13/24 17:00 Nasal Cannula 2 06/13/24 16:50 Nasal Cannula 2 06/13/24 16:40 Nasal Cannula 2 06/13/24 16:30 Nasal Cannula 2 06/13/24 16:20 Oxymask 5 06/13/24 16:10 Oxymask 5 06/13/24 16:00 Oxymask 5 06/13/24 15:54 Oxymask 5 06/13/24 10:47 Room Air
[2024-06-13] MEDS: KETOROLAC TROMETHAMINE 15 MG/ML VIAL IV PRN (19:35)
[2024-06-13] MEDS: traMADol HCL 50 MG TABLET PO PRN (20:50)
[2024-06-13] MEDS: DOCUSATE SODIUM/SENNA 50/8.6MG TAB PO SCH (20:54)
[2024-06-13] MEDS: CLINDAMYCIN/D5W 600 MG/50 ML BAG IV SCH (21:47)
--- OUTSIDE RECORDS SUMMARY | 2024-06-14 03:34 | External Medical Summary | Summary of Care ---
Author Name Unknown Organization [facility] Address [address] [facility] [place] [address] Phone [phone] Care Team Providers Care Public Welfare Director Name Role Phone Michelle Trotter PA-C Primary Care Provider Reason for Visit * Reason Comments eRx-Medication Refill Encounter Details Date Type Department Care Team ([facility] Contact Info) Description 06/12/2024 Refill Family Practice [address] [phone] Anupama Prater PA-C [address] [place] [address] [phone] Epigastric pain Allergies Active Allergy Reactions Criticality Noted Date Comments Doxycycline 07/22/2003 Other Reaction(s): Unknown Penicillins 03/08/2001 Venlafaxine Hydrochloride 03/10/2021 documented as of this encounter (statuses as of 06/13/2024) Medications clobetasol (TEMOVATE) 0.05 % gelIndications: Lichen sclerosus apply to vaginal area every day with flare ups. not longer than 2 weeks. 1 Tube 3 04/29/20 19 Active SUMAtriptan Succinate 100 MG Oral TabletIndicatio ns:Intractable migraine with aura without status migrainosus take one tablet by mouth at headache onset, may repeat one tablet in 2 hours if needed 9 Tab 5 02/17/20 21 Active Fluticasone Propionate 50 MCG/ACT Nasal Suspension (Flonase)Indica tions:Acute sinusitis, recurrence not specified, unspecified location Administer 2 Sprays into each nostril in the morning. 1 Each 5 08/09/19 23 Active Sertraline HCl 50 MG Oral Tablet (Zoloft)Indicat ions:Mood disorder (HCC),Severe episode of recurrent major depressive disorder, without psychotic features (HCC),ESTEVAN (generalized anxiety disorder) TAKE 1 TABLET BY MOUTH IN THE MORNING ALONG WITH 100MG TABLET 90 Tablet 2 09/19/19 24 Active Sertraline HCl 100 MG Oral Tablet (Zoloft) TAKE 1 TABLET BY MOUTH DAILY 90 Tablet 1 03/09/20 24 Active predniSONE 5 MG Oral Tablet (Deltasone) Take 1 Tablet by mouth in the morning. 14 Tablet 04/29/20 24 Active Omeprazole 40 MG Oral Capsule Delayed Release (PriLOSEC)Indic ations:Epigastr ic pain Take 1 Capsule by mouth in the morning 1 hour before the first meal of the day. 90 Capsule 3 06/13/20 24 Active Omeprazole 40 MG Oral Capsule Delayed Release (PriLOSEC)Indic ations:Epigastr ic pain Take 1 Capsule by mouth in the morning. 1 hour before the first meal of the day. 90 Capsule 3 05/23/20 23 024 Discontinued documented as of this encounter (statuses as of 06/13/2024) Active Problems Problem Noted Date Diagnosed Date [...] 12/19/2019 Palpitations 12/08/2019 Preoperative cardiovascular examination 12/08/19 History of tobacco abuse 08/04/2019 ESTEVAN (generalized anxiety disorder) 06/06/2018 FUNCTIONAL VAGINISMUS 08/23/2006 Rosacea 07/19/2005 Vertigo 07/04/2004 CLASSICAL MIGRAINE WITH INTRACTABLE MIGRAINE, SO STATED 07/04/2002 documented as of this encounter (statuses as of 06/13/2024) Resolved Problems Problem Noted Date Diagnosed Date [...] as of this encounter (statuses as of 06/13/2024) Immunizations Name Administration Dates Next Due PPD [...] encounter Miscellaneous Notes * Telephone Encounter - Padilla Jacobo RPh - 06/13/2024 12:03 PM ESTSigned Prescriptions: Disp Refills Omeprazole 40 MG Oral Capsule Delayed Rele*90 Cap*3 Sig: Take 1 Capsule by mouth in the morning 1 hour before the first meal of the day.Authorizing Provider: MICHELLE TROTTER User: PADILLA JACOBO Electronically signed by [facility], located within [facility] at 06/13/2024 12:03 PM EST documented in this encounter Plan of Treatment Upcoming Encounters Date Type Department Care Team (Late st Contact Info) Description 11/12/2024 3:00 PM EDT Office Visit Rheumatology [address] [place] [address] Shaniqua Diaz CRNP [facility] [place] [address] Scheduled Procedures Name Priority Associated Diagnoses Date/Ti [...] this encounter Medical Devices Implanted Type Area Formation Fracturing Operator Device Identifier Shelf Expiration Date Model / Serial / Lot [place] Mini Quick 2/0 [id number] - [id number] Implanted:Qty: 1 on 06/09/2011 at [facility] Left: Hand JNJ : DEPUY MITEK SURG PROD 02/22/2014 [id number] / / [id number] [place] Mini Quick 2/0 [id number] - [id number] Implanted:Qty: 1 on 06/09/2011 at OR [facility] Left: Hand JNJ : DEPUY MITEK SURG PROD 02/22/2014 [id number] / / [id number] documented as of this encounter Visit Diagnoses Diagnosis Epigastric pain Abdominal pain, epigastric documented in this encounter Advance Directives * Full Code (Latest Code Status on File) Date Activated Date Inactivated Comments 06/09/2011 9:05 AM 06/09/2011 5:49 PM This order reflects the patients wishes and were consensually agreed upon. Care Teams Public Welfare Director Relationship Specialty Start Date End Date Michelle Trotter PA-C [address] [place] [address] [place] [phone] PCP - General Physician Income Tax Auditor 04/20/18 documented as of this encounter
[2024-06-14] MEDS: oxyCODONE HCL IR 5 MG TAB (IMMEDIATE RELEASE) PO PRN (05:43)
[2024-06-14] MEDS: POLYETHYLENE (MIRALAX) 17 GM PACK PO SCH (05:46)
[2024-06-14 06:04] LABS: Basophils # (auto) 0.01 K/uL (0.00-0.20); Basophils % (auto) 0.1 %; Hematocrit (blood only) 32.4 % (37.0-47.0); Immature Granulocytes # (auto) 0.37 K/uL (0.01-0.20); Immature Granulocytes % (auto) 2.7 %; Lymphocytes # (auto) 1.03 K/uL (1.20-3.40); Lymphocytes % (auto) 7.4 %; Mean Corpuscular Hemoglobin 31.9 pg (25.0-34.0); Mean Corpuscular Volume 93.9 fL (80.0-100.0); Mean Platelet Volume 9.3 fL (9.4-12.4); Monocytes # (auto) 0.82 K/uL (0.11-0.59); Monocytes % (auto) 5.9 %; Neutrophils # (auto) 11.62 K/uL (1.40-6.50); Neutrophils % (auto) 83.9 %; Platelet Count 153 K/uL (130-400); RDW Coefficient of Variation 12.4 % (11.5-14.5); RDW Standard Deviation 42.4 fL (36.4-46.3); Red Blood Count 3.45 M/uL (4.20-5.40); White Blood Count 13.85 K/ul (4.8-10.8)
[2024-06-14 06:17] LABS: BUN Creatinine Ratio 17.8 (10-20); Creatinine Clr Calc Pharmacy 71.6 ml/min; Potassium 4.1 mmol/L (3.5-5.1)
[2024-06-14] MEDS: CHOLECALCIFEROL 125 MCG (5,000 UNITS) TAB PO SCH (08:49)
[2024-06-14] MEDS: dexAMETHasone 6 MG in SYRINGE 0 ML IV SCH (08:49)
[2024-06-14] MEDS: SERTRALINE HCL 50 MG TABLET PO SCH (08:50)
[2024-06-14] MEDS: PANTOprazole 40 MG TAB PO SCH (08:50)
[2024-06-14] MEDS: ACETAMINOPHEN 500 MG TAB PO PRN (08:51)
--- NOTE | 2024-06-14 09:52 | Orthopedic Progress Note ---
Date of Service June 14, 2024 Assessment & Plan (1) Lumbosacral spondylosis with radiculopathy: Plan: At this time we will continue physical therapy monitor BARTOLO output over the discharge home the next few days. Admission and Anticipated Discharge Date Admission Date: June 13, 2024 Subjective Back pain controlled leg pain improved Physical Exam Physical Exam: Patient is currently in bed. She is comfortable. Good strength testing. Results & Data Vital Signs (Past 12 Hours) Vital Signs Temp Pulse Resp BP Pulse Ox O2 Del Method O2 Flow Rate 06/14/24 07:43 36.6 C 76 16 116/63 95 Room Air 06/14/24 03:11 37.0 C 76 18 123/56 L 94 Room Air 06/13/24 23:13 36.6 C 72 18 133/68 95 Nasal Cannula 1 Queries Orthopedic Spine Acute Posthemorrhagic Anemia: Yes
[2024-06-14] MEDS: CYCLOBENZAPRINE HCL 10 MG TAB PO PRN (10:45)
--- NOTE | 2024-06-14 16:56 | Hospitalist Progress Note ---
Date of Service June 14, 2024 Assessment & Plan (1) Lumbosacral spondylosis with radiculopathy: (2) Depression: (3) Anxiety: (4) GERD (gastroesophageal reflux disease): (5) PMR (polymyalgia rheumatica): Plan Ms. Ye is a 59-year-old female with PMH migraines, depression, anxiety, Monse thyroiditis, PMR, and other problems listed below who is s/p L2-L4 decompression fusion 06/[address] Montoya. Patient doing well post operatively with likely dispo home #Lumbosacral spondylosis with radiculopathy: POD#0 L2-L4 decompression and fusion by Dr. 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 We will follow the patient with you during their hospital stay. You can reach a member of the [facility] Hospitalist Team 15/01 via the [facility] role in [place] Text. Admission and Anticipated Discharge Date Admission Date: June 13, 2024 Subjective sitting in bedside chair, eating dinner doing well, expected post operative pain but no other acute concerns reports resolution of LLE radiculopathy Physical Exam Constitutional: WD/WN, vitals as above Respiratory: normal respiratory effort, lungs clear to auscultation Cardiovascular: RRR, no murmur, no edema Results & Data Results & Data Vital Signs (Past 12 Hours) Vital Signs Temp Pulse Resp BP Pulse Ox O2 Del Method 06/14/24 15:36 36.9 C 74 15 106/60 95 Room Air 06/14/24 15:16 36.9 C 75 16 111/59 L 94 Room Air 06/14/24 07:43 36.6 C 76 16 116/63 95 Room Air Laboratory Results Short CBC 06/14/24 Range/Units 05:45 WBC 13.85 H (4.8-10.8) K/ul Hgb 11.0 L (12.0-16.0) g/dl Hct 32.4 L (37.0-47.0) % Plt Count 153 (130-400) K/uL BMP 06/14/24 05:45 Sodium 141 Potassium 4.1 Chloride 106 Carbon Dioxide 27 BUN 13 Creatinine 0.73 Glucose 151 H Calcium 9.0 Medications Administered Home Medications Medication Instructions Recorded Confirmed Last Taken alprazolam 0.5 mg tablet (Xanax) 0.5 mg PO DAILY PRN Anxiety 06/06/24 06/13/24 Unknown cholecalciferol (vitamin D3) 125 5,000 unit PO QAM 06/06/24 06/13/24 06/11/24 07:00 mcg (5,000 unit) tablet (Vitamin D3) omeprazole 40 mg capsule,delayed 40 mg PO QAM 06/06/24 06/13/24 06/11/24 07:00 release sertraline 100 mg tablet (Zoloft) 150 mg PO QAM 06/06/24 06/13/24 06/12/24 07:00 sumatriptan succinate 100 mg 100 mg PO UD PRN Migraine Headache 06/06/24 06/13/24 Unknown tablet (Imitrex) cyclobenzaprine 10 mg tablet 10 mg PO Q8 PRN muscle spasm #20 06/14/24 Unknown tabs oxycodone 5 mg tablet 5 mg PO Q6H PRN pain #30 tabs 06/14/24 Unknown tramadol 50 mg tablet 50 mg PO Q6H PRN pain, moderate 06/14/24 Unknown #30 tabs Active Medications Generic Name Dose Route Start Last Admin Trade Name Malu PRN Reason Stop Dose Admin Acetaminophen 1,000 mg 06/13/24 17:29 06/14/24 08:51 Acetaminophen 500 Mg Tab PO 07/13/24 17:28 1,000 mg Q8H PRN Administration MILD Pain Scale 1,2,3 & Pre PT Cyclobenzaprine HCl 10 mg 06/14/24 09:51 06/14/24 10:45 Cyclobenzaprine Hcl 10 Mg Tab PO 07/14/24 09:50 10 mg Q6 PRN Administration Muscle Spasm Dexamethasone 6 mg/ Syringe 1.5 mls @ 1 mls/min 06/14/24 09:00 06/14/24 08:49 IV 06/16/24 09:02 1 mls/min DAILY KATERIN Administration Ketorolac Tromethamine 15 mg 06/13/24 17:29 06/13/24 19:35 Ketorolac Tromethamine 15 Mg/Ml Vial IV 15 mg Q6H PRN Administration Pain Oxycodone HCl 5 - 10 mg 06/13/24 17:29 06/14/24 16:35 Oxycodone Hcl Ir 5 Mg Tab (Immediate Release) PO 06/27/24 17:28 10 mg Q4H PRN Administration Pain & Pre PT Pantoprazole Sodium 40 mg 06/14/24 09:00 06/14/24 08:50 Pantoprazole 40 Mg Tab PO 07/14/24 08:59 40 mg QAM KATERIN Administration Polyethylene Glycol 17 gm 06/14/24 06:00 06/14/24 13:32 Polyethylene (Miralax) 17 Gm Pack PO 07/14/24 05:59 17 gm Q6 KATERIN Administration Senna/Docusate Sodium 2 tab 06/13/24 21:00 06/13/24 20:54 Docusate Sodium/Senna 50/8.6mg Tab PO 07/13/24 20:59 2 tab HS KATEIRN Administration Sertraline HCl 150 mg 06/14/24 09:00 06/14/24 08:50 Sertraline Hcl 50 Mg Tablet PO 07/14/24 08:59 150 mg QAM KATERIN Administration Tramadol HCl 50 - 100 mg 06/13/24 17:29 06/14/24 08:50 Tramadol Hcl 50 Mg Tablet PO 07/13/24 17:28 100 mg Q4H PRN Administration Moderate-Severe pain & Pre PT Vitamin D 125 mcg 06/14/24 09:00 06/14/24 08:49 Cholecalciferol 125 Mcg (5,000 Units) Tab PO 07/14/24 08:59 125 mcg QAM KATERIN Administration
--- NOTE | 2024-06-15 08:36 | Orthopedic Progress Note ---
Date of Service June 15, 2024 Assessment & Plan (1) Lumbosacral spondylosis with radiculopathy: Plan: Tiffany is postoperative day 2 status post L2-4 decompression and fusion. Will continue with physical therapy. DVT prophylaxis is in the form of teds and SC Ds. Continue with pain control. Maintain BARTOLO drain. Anticipate discharge home tomorrow Admission and Anticipated Discharge Date Admission Date: June 13, 2024 Subjective Tiffany is postoperative day 2 status post lumbar decompression and fusion L2-4. She has more back pain today. Radicular leg pain has resolved. BARTOLO drain output last shift was 40 cc. Yesterday in physical therapy ambulating 200 feet. She has had a bowel movement. Review of Systems Review of Systems: All systems reviewed & are unremarkable except as noted in HPI & below Physical Exam Physical Exam: She is sitting up in bed eating breakfast in no acute distress. Alert and oriented x 3 lumbar dressing is clean dry and intact with functioning BARTOLO drain Calf soft and nontender strength intact bilateral lower extremities Results & Data Vital Signs (Past 12 Hours) Vital Signs Temp Pulse Resp BP Pulse Ox O2 Del Method O2 Flow Rate 06/15/24 08:00 36.9 C 84 16 120/78 97 Room Air 06/14/24 21:39 Nasal Cannula 2 Queries Orthopedic Spine Acute Posthemorrhagic Anemia: Yes
--- NOTE | 2024-06-15 15:39 | Hospitalist Progress Note ---
Date of Service June 15, 2024 Assessment & Plan (1) Lumbosacral spondylosis with radiculopathy: (2) Depression: (3) Anxiety: (4) GERD (gastroesophageal reflux disease): (5) PMR (polymyalgia rheumatica): Plan Ms. Ye is a 59-year-old female with PMH migraines, depression, anxiety, Monse thyroiditis, PMR, and other problems listed below who is s/p L2-L4 decompression fusion 06/[address] Montoya. Patient doing well post operatively with likely dispo home tomorrow #Lumbosacral spondylosis with radiculopathy: POD#0 L2-L4 decompression and fusion by Dr. 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 We will follow the patient with you during their hospital stay. You can reach a member of the [facility] Hospitalist Team 15/01 via the [facility] Hospitalist role in [place] Text. Admission and Anticipated Discharge Date Admission Date: June 13, 2024 Subjective Initially saw patient ambulating hallways with PT then assessed there after in room, patient noting increased discomfort from day prior but also reports hesistation with pain medications Denies any other concerns like chest pain, sob or other acute concerns Physical Exam Constitutional: WD/WN, vitals as above Respiratory: normal respiratory effort, lungs clear to auscultation Cardiovascular: RRR, no murmur, no edema Neurologic: PERRL, EOMI, accommodation nl, no face palsy, no dysarthria Results & Data Results & Data Vital Signs (Past 12 Hours) Vital Signs Temp Pulse Resp BP Pulse Ox O2 Del Method 06/15/24 11:45 37.1 C 82 16 122/78 92 Room Air 06/15/24 08:00 36.9 C 84 16 120/78 97 Room Air Medications Administered Home Medications Medication Instructions Recorded Confirmed Last Taken alprazolam 0.5 mg tablet (Xanax) 0.5 mg PO DAILY PRN Anxiety 06/06/24 06/13/24 Unknown cholecalciferol (vitamin D3) 125 5,000 unit PO QAM 06/06/24 06/13/24 06/11/24 07:00 mcg (5,000 unit) tablet (Vitamin D3) omeprazole 40 mg capsule,delayed 40 mg PO QAM 06/06/24 06/13/24 06/11/24 07:00 release sertraline 100 mg tablet (Zoloft) 150 mg PO QAM 06/06/24 06/13/24 06/12/24 07:00 sumatriptan succinate 100 mg 100 mg PO UD PRN Migraine Headache 06/06/24 06/13/24 Unknown tablet (Imitrex) cyclobenzaprine 10 mg tablet 10 mg PO Q8 PRN muscle spasm #20 06/14/24 Unknown tabs oxycodone 5 mg tablet 5 mg PO Q6H PRN pain #30 tabs 06/14/24 Unknown tramadol 50 mg tablet 50 mg PO Q6H PRN pain, moderate 06/14/24 Unknown #30 tabs Active Medications Generic Name Dose Route Start Last Admin Trade Name Freq PRN Reason Stop Dose Admin Acetaminophen 1,000 mg 06/13/24 17:29 06/14/24 08:51 Acetaminophen 500 Mg Tab PO 07/13/24 17:28 1,000 mg Q8H PRN Administration MILD Pain Scale 1,2,3 & Pre PT Cyclobenzaprine HCl 10 mg 06/14/24 09:51 06/15/24 07:56 Cyclobenzaprine Hcl 10 Mg Tab PO 07/14/24 09:50 10 mg Q6 PRN Administration Muscle Spasm Dexamethasone 6 mg/ Syringe 1.5 mls @ 1 mls/min 06/14/24 09:00 06/15/24 08:00 IV 06/16/24 09:02 1 mls/min DAILY KATERIN Administration Ketorolac Tromethamine 15 mg 06/13/24 17:29 06/15/24 07:56 Ketorolac Tromethamine 15 Mg/Ml Vial IV 15 mg Q6H PRN Administration Pain Oxycodone HCl 5 - 10 mg 06/13/24 17:29 06/14/24 16:35 Oxycodone Hcl Ir 5 Mg Tab (Immediate Release) PO 06/27/24 17:28 10 mg Q4H PRN Administration Pain & Pre PT Pantoprazole Sodium 40 mg 06/14/24 09:00 06/15/24 08:00 Pantoprazole 40 Mg Tab PO 07/14/24 08:59 40 mg QAM KATEIRN Administration Senna/Docusate Sodium 2 tab 06/13/24 21:00 06/14/24 21:39 Docusate Sodium/Senna 50/8.6mg Tab PO 07/13/24 20:59 2 tab HS KATERIN Administration Sertraline HCl 150 mg 06/14/24 09:00 06/15/24 07:57 Sertraline Hcl 50 Mg Tablet PO 07/14/24 08:59 150 mg QAM KATERIN Administration Tramadol HCl 50 - 100 mg 06/13/24 17:29 06/14/24 08:50 Tramadol Hcl 50 Mg Tablet PO 07/13/24 17:28 100 mg Q4H PRN Administration Moderate-Severe pain & Pre PT Vitamin D 125 mcg 06/14/24 09:00 06/15/24 08:00 Cholecalciferol 125 Mcg (5,000 Units) Tab PO 07/14/24 08:59 125 mcg QAM KATERIN Administration
[2024-06-15 19:37] VITALS: O2SAT 95
[2024-06-16 07:32] VITALS: BP 102/63; RESP 16; TEMP 98.2
--- NOTE | 2024-06-16 09:48 | Hospitalist Progress Note ---
Date of Service June 16, 2024 Assessment & Plan (1) Lumbosacral spondylosis with radiculopathy: (2) Depression: (3) Anxiety: (4) GERD (gastroesophageal reflux disease): (5) PMR (polymyalgia rheumatica): Plan Ms. Ye is a 59-year-old female with PMH migraines, depression, anxiety, Monse thyroiditis, PMR, and other problems listed below who is s/p L2-L4 decompression fusion 06/[address] Montoya. Patient doing well post operatively. Will dispo to home per Ortho spine service. Medically stable at this tme other yousif #Lumbosacral spondylosis with radiculopathy: POD#3 L2-L4 decompression and fusion by Dr. Montoya Activity and wound care orders as per ortho Pain control with bowel regimen PT/OT: plan for home EBL 150cc # Depression: #Anxiety: Chronic, stable Continue [employer] sertraline #GERD (gastroesophageal reflux disease): Chronic, stable Continue PPI # PMR (polymyalgia rheumatica): Previously on prednisone, currently on hold in the perioperative period - resume at the discretion of spine Ortho Patient follows with [facility] rheumatology TEDs/SCDs as per spine Ortho Thank you for this consultation. We will follow the patient with you during their hospital stay. You can reach a member of the [facility] Hospitalist Team 15/01 via the [facility] Hospitalist role in [employer] Text. Admission and Anticipated Discharge Date Admission Date: June 13, 2024 Subjective Reports feeling much better this am and working to stay ahead of discomfort denies any new concerns and feels confident that she will be successful at home Physical Exam Constitutional: WD/WN, vitals as above Respiratory: normal respiratory effort, lungs clear to auscultation Cardiovascular: RRR, no murmur, no edema Skin: BARTOLO drain with minimal output Results & Data Results & Data Vital Signs (Past 12 Hours) Vital Signs Temp Pulse Resp BP Pulse Ox O2 Del Method 06/16/24 07:30 36.8 C 76 16 102/63 95 Room Air Medications Administered Home Medications Medication Instructions Recorded Confirmed Last Taken alprazolam 0.5 mg tablet (Xanax) 0.5 mg PO DAILY PRN Anxiety 06/06/24 06/13/24 Unknown cholecalciferol (vitamin D3) 125 5,000 unit PO QAM 06/06/24 06/13/24 06/11/24 07:00 mcg (5,000 unit) tablet (Vitamin D3) omeprazole 40 mg capsule,delayed 40 mg PO QAM 06/06/24 06/13/24 06/11/24 07:00 release sertraline 100 mg tablet (Zoloft) 150 mg PO QAM 06/06/24 06/13/24 06/12/24 07:00 sumatriptan succinate 100 mg 100 mg PO UD PRN Migraine Headache 06/06/24 4 Unknown tablet (Imitrex) cyclobenzaprine 10 mg tablet 10 mg PO Q8 PRN muscle spasm #20 06/14/24 Unknown tabs oxycodone 5 mg tablet 5 mg PO Q6H PRN pain #30 tabs 06/14/24 Unknown tramadol 50 mg tablet 50 mg PO Q6H PRN pain, moderate 06/14/24 Unknown #30 tabs Active Medications Generic Name Dose Route Start Last Admin Trade Name Freq PRN Reason Stop Dose Admin Acetaminophen 1,000 mg 06/13/24 17:29 06/14/24 08:51 Acetaminophen 500 Mg Tab PO 07/13/24 17:28 1,000 mg Q8H PRN Administration MILD Pain Scale 1,2,3 & Pre PT Cyclobenzaprine HCl 10 mg 06/14/24 09:51 06/16/24 06:34 Cyclobenzaprine Hcl 10 Mg Tab PO 07/14/24 09:50 10 mg Q6 PRN Administration Muscle Spasm Ketorolac Tromethamine 15 mg 06/13/24 17:29 06/15/24 07:56 Ketorolac Tromethamine 15 Mg/Ml Vial IV 15 mg Q6H PRN Administration Pain Oxycodone HCl 5 - 10 mg 06/13/24 17:29 06/16/24 06:34 Oxycodone Hcl Ir 5 Mg Tab (Immediate Release) PO 06/27/24 17:28 10 mg Q4H PRN Administration Pain & Pre PT Pantoprazole Sodium 40 mg 06/14/24 09:00 06/16/24 08:12 Pantoprazole 40 Mg Tab PO 07/14/24 08:59 40 mg QAM KATERIN Administration Senna/Docusate Sodium 2 tab 06/13/24 21:00 06/15/24 19:08 Docusate Sodium/Senna 50/8.6mg Tab PO 07/13/24 20:59 Not Given HS KATERIN Sertraline HCl 150 mg 06/14/24 09:00 06/16/24 08:12 Sertraline Hcl 50 Mg Tablet PO 07/14/24 08:59 150 mg QAM KATERIN Administration Tramadol HCl 50 - 100 mg 06/13/24 17:29 06/14/24 08:50 Tramadol Hcl 50 Mg Tablet PO 07/13/24 17:28 100 mg Q4H PRN Administration Moderate-Severe pain & Pre PT Vitamin D 125 mcg 06/14/24 09:00 06/16/24 08:12 Cholecalciferol 125 Mcg (5,000 Units) Tab PO 07/14/24 08:59 125 mcg QAM KATERIN Administration
--- NOTE | 2024-06-16 09:56 | Discharge Summary ---
Date of Service June 16, 2024 Admission HPI Per Admitting Provider This is a 59-year-old female who presents with chronic system back and leg pain after failing course of nonoperative care is here for surgical invention. Principal Diagnosis Lumbar spinal stenosis with neurogenic claudication Discharge Data Allergies Allergy/AdvReac Type Severity Reaction Status Date / Time doxycycline Allergy Intermediate hives/rash Verified 06/13/24 10:40 Penicillins Allergy Unknown Unknown Verified 06/13/24 10:40 Consultations 06/13/24 17:29 Consult Hospitalist Routine Procedures Performed Operation Date: 06/13/24 12:35 Actual Procedures p L2-L4 Decompression and Fusion, Spinal Cord Monitoring(Not Applicable) - Judah Montoya DO Ordered Studies 06/13/24 12:35 [place] lumbar spine 2-3V Routine Hospital Course (1) Lumbosacral spondylosis with radiculopathy: Patient underwent multilevel lumbar decompression fusion trial as well as taken orthopedic for postoperative postop lesion progressed appropriately. BARTOLO drain decreasing well. Extra strength testing. Pain controlled. Simply discharged home. Discharge orders instructions from the chart for further view. Total Time Total Time Spent Total Time Spent (In Minutes): 20 minutes Discharge Plan Discharge Items Patient Disposition: Home - Self-Care Reason For Visit: POSTOP Discharge Diagnosis: Lumbar spondylosis with radiculopathy Activity: As commented below Non-emergency contact: Primary Care Provider Call non-emergency contact if: you have any medication questions Follow-up/Referrals: Michelle Weathers PA-C [Primary Care Provider] - Diet: Regular Addtl Attending Provider Instructions: ACTIVITY RECOMMENDATIONS: SELF CARE INSTRUCTIONS AFTER THORACIC/LUMBAR FUSIONS 1. You may walk to your tolerance. It is good exercise for your legs and back. Expect some back and intermittent leg aches and pains. 2. You may perform "counter-top" level activities (make a sandwich, tamela with a project, etc.). 3. No bending or lifting of more than 10 pounds or back twisting of any nature (roll like a log when turning in bed). 4. You may ride in a car for 20-30 minutes at a time. No driving until after your first visit with your doctor. 5. Frequent changes of position and restricting sitting to 30 minutes at a time will help limit the amount of back spasms and stiffness you may experience. 6. You may discontinue the use of ambulatory aids (cane, crutches, etc.) once your strength and confidence allow. 7. You may medical insurance biller the shower and let water strike your incision when you arrive home at least once daily. Do not take a tub bath, sit in a hot tub or go into a swimming pool until after your first recheck in the office. 8. You may resume previous diet. SPECIAL CARE INSTRUCTIONS: VERY IMPORTANT TO READ AND REVIEW A. Your surgical incision has been closed with a cosmetic suture under the skin that will dissolve in about 6 weeks. In 14 days, you can use a pair of clean scissors and cut the suture that is left outside of the skin at the ends of your incision. 1. The small skin tapes can be removed 7 days after surgery if they have not fallen off by that point. 2. You may keep the wound open to air as much as possible to promote healing after post-op day number 5 unless told otherwise by your doctor. 3. If you think the wound looks like it is becoming infected (redness or worsening drainage) and/or you are experiencing fever, chill or worsening back pain and muscle spasms, contact the office so that we may evaluate you as soon as possible. B. Complications are uncommon, but please contact us if you have any signs or symptoms of: 1. wound infection (fever higher than 102.5 degrees F, redness, separation of wound, drainage, or increasing pain from the incision) 2. blood clots in legs (pain, swelling, redness and warmth in legs) 3. urinary tract infection (fever higher than 102.5 degrees F, burning upon urination or increased frequency of urination) 4. nerve problems (inability to walk on your toes or heels, numbness, loss of bowel or bladder control) 5. any other symptoms that concern you C. Please call the office at if you have any concerns or questions about your operation or recovery. D. No smoking! Smoking drastically decreases the chance of a solid fusion. E. Do not take any anti-inflammatory medications (Indocin, Advil, Motrin, Aspirin, Naprosyn, etc.) as these may inhibit the chance of a solid fusion. Tylenol is okay to take for pain. MANAGING PAIN AFTER SPINAL SURGERY 1. Narcotic medication is intended for short-term use and will be provided for surgical pain. Surgical pain usually lasts for a period of 4-6 weeks. Narcotic medication includes Percocet, Vicodin, Darvocet, Tylenol #3 or Lortab. 2. Longer-term pain is more appropriately treated with non-narcotic medication such as Tylenol ES. 3. Muscle spasm is not appropriately treated with narcotics. Muscle relaxers such as Soma, Flexeril or Skelaxin can be used along with Tylenol ES. 4. Remember that we all live with some "aches and pains". This is not unusual or uncommon after an injury or as we get older. a. Back pain is expected and may include muscle spasms for 4 to 6 weeks afte r surgery. The pain should gradually improve. If the pain worsens for no apparent reason, please contact the office. b. Intermittent leg pain may also be experienced and should not be concerned about unless it worsens for no apparent reason. If so, please contact the office. 5. We will provide appropriate medication within the normal guidelines of their prescribed use. We will also be very cautious and aware of potential abuse and extended duration of patients' medication needs. a. Pain medications are for your comfort and to assist with sleep and rest so that the tissue can heal. They are not provided in order to return to normal activity and should not be used through the day. To do so or worsening pain at night can result from ongoing tissue damage and development of tolerance to the prescribed medicine. 6. Please allow 2-3 days to process refills. Prescriptions will not be mailed but must be picked up at the office. FOLLOW UP VISIT: Keep your scheduled follow-up appointment. Any questions, please call the office at . Pending Studies at Discharge: No Stand-Alone Forms: [facility], Smoking Cessation Medications and DC Order Prescriptions: New tramadol 50 mg tablet 50 mg PO Q6H PRN (Reason: pain, moderate) Qty: 30 0RF oxycodone 5 mg tablet 5 mg PO Q6H PRN (Reason: pain) Qty: 30 0RF cyclobenzaprine 10 mg Tablet 10 mg PO Q8 PRN (Reason: muscle spasm) Qty: 20 0RF Continued sumatriptan succinate [Imitrex] 100 mg Tablet 100 mg PO UD PRN (Reason: Migraine Headache) Rx Instructions: take 1 tab at onset of headache; if no relief, may repeat 1 tab after at least 2 hrs; max = 2 tabs/24 hrs sertraline [Zoloft] 100 mg Tablet 150 mg PO QAM omeprazole [Prilosec] 40 mg Capsule,Delayed Release(Dr/Ec) 40 mg PO QAM alprazolam [Xanax] 0.5 mg Tablet 0.5 mg PO DAILY PRN (Reason: Anxiety) cholecalciferol (vitamin D3) [Vitamin D3] 125 mcg (5,000 unit) Tablet 5,000 unit PO QAM Discharge Orders: Discharge Order (Routine); Ordered 06/16/24 Ordered By: Judah Montoya Admission Data Admit Date/Time: 06/13/24 15:46 Attending Provider: Judah Montoya Admit Provider: Judah Montoya Primary Care Provider: Michelle Weathers Other Providers: Ruba Stroud
[2024-06-16 09:59] VITALS: PULSE 82
== END 2024-06-16 10:46 | disposition home or self-care (01) | DRG 427 ==
LOC: ASU 09:55 → 3E 15:46